=== PATIENT | male | born 1985 | race Caucasian/White ===

== ENCOUNTER 2018-03-02 15:42 | Emergency (ER) | payer BC, MEDICAID ==
[~2018-03-02] VITALS: Ht 182.9 cm; Wt 76.4 kg
[2018-03-02 15:43] VITALS: BP 101/66
[2018-03-02] MEDS ORDERED: LIDOcaine 1% w/epiNEPHrine 1:200,000 30ml vial IJ ONE (16:55)
[2018-03-02] MEDS ORDERED: LIDOcaine 1.5% w/epinephrine 1:200,000 5ml ampul IJ ONE (16:55)
[2018-03-02] MEDS ORDERED: SULF1TAB49 PO (17:01)
== END 2018-03-02 17:37 | disposition home or self-care (01) ==
LOC: ER 15:42
DX: L02.416 Cutaneous abscess of left lower limb (principal); F12.90 Cannabis use, unspecified, uncomplicated; Z88.8 Allergy status to other drugs, medicaments and biological substances; Z79.899 Other long term (current) drug therapy; Z98.890 Other specified postprocedural states
CPT/HCPCS: 99283; J3490

== ENCOUNTER 2020-09-20 18:06 | Emergency (ER) | payer BC, OTHER ==
[~2020-09-20] VITALS: Ht 180.3 cm; Wt 70.2 kg
[2020-09-20 22:25] VITALS: BP 112/78
== END 2020-09-20 22:27 | disposition home or self-care (01) ==
LOC: ER 18:06
DX: M79.642 Pain in left hand (principal); F12.90 Cannabis use, unspecified, uncomplicated; Z98.890 Other specified postprocedural states; Z72.89 Other problems related to lifestyle; Z88.8 Allergy status to other drugs, medicaments and biological substances
CPT/HCPCS: 29125; 29130; 73130; 99283